=== PATIENT | male | born 1990 | race Caucasian/White ===

== ENCOUNTER → 2022-01-27 | Outpatient (CLI) | payer OTHER ==
--- NOTE | 2022-01-27 11:53 | XR ---
EXAMINATION TYPE: XR lumbosacral spine min 4V DATE OF EXAM: 01/27/2022 CLINICAL HISTORY: pain COMPARISON: NONE TECHNIQUE: Frontal, lateral, and oblique images of the lumbar spine are obtained. FINDINGS: Mild curvature convex to the left. There are 5 lumbar type vertebral bodies identified. Th e lumbar spine shows satisfactory alignment without evidence of acute fracture or dislocation. Verteb ral body heights are within normal limits. Disc spaces are well preserved. The overlying soft tissu e appears unremarkable. IMPRESSION: No acute fracture or dislocation is seen in the lumbar spine.ICD 10 NO FRACTURE, INITIAL EVALUATION
== END | disposition home or self-care (01) ==
LOC: RADXRMAIN 10:53
PROVIDERS: ATTEND Family Medicine
DX: M54.50 Low back pain, unspecified (principal)
CPT/HCPCS: 72110